=== PATIENT | female | born 1955 | race African-American/Black ===

== ENCOUNTER 2019-01-03 11:59 | Inpatient (IN) ==
[2019-01-03] MEDS ORDERED: HydrOXYzine PAMOATE 25 MG CAPSULE PO PRN (13:19)
[2019-01-03] MEDS ORDERED: METHOCARBAMOL 750 MG TABLET PO PRN (13:19)
[2019-01-03] MEDS ORDERED: LORazepam 2 MG/1 ML VIAL IV PRN (13:19)
[2019-01-03] MEDS ORDERED: DICYCLOMINE 10 MG CAPSULE PO PRN (13:19)
[2019-01-03] MEDS ORDERED: THIAMINE INJ 100 MG, FOLIC ACID INJ 1 MG, MULTIVITAMIN INJ 10 ML in SODIUM CHLORIDE 0.9... IV ONE (14:00)
[2019-01-03] MEDS: LORazepam 1 MG TABLET PO SCH ×3 (14:35→22:44)
[2019-01-03] MEDS: chlordiazePOXIDE 25 MG CAPSULE PO SCH ×2 (14:35→20:30)
[2019-01-03] MEDS: NICOTINE 21 MG/24 HR PATCH TRANSDERM SCH (14:35)
[2019-01-04] MEDS: LORazepam 1 MG TABLET PO SCH ×5 (03:56→19:54)
[2019-01-04] MEDS: chlordiazePOXIDE 25 MG CAPSULE PO SCH ×4 (03:56→21:21)
[2019-01-04] MEDS: NICOTINE 21 MG/24 HR PATCH TRANSDERM SCH (09:24)
[2019-01-04] MEDS: amLODIPine 10 MG TABLET PO SCH (09:24)
[2019-01-04] MEDS: LOSARTAN 50 MG TABLET PO SCH (09:24)
[2019-01-04 13:06] LABS: Albumin 3.7 G/DL (3.4-5.0); Bilirubin,Total 0.6 MG/DL (0.2-1.0); Osmolality,Calculated 275.5 MOS/KG (273-304); Total Protein 7.4 G/DL (6.4-8.3)
[2019-01-04] MEDS: SODIUM CHLORIDE 0.45% 1,000 ML IV SCH ×2 (13:27→21:49)
[2019-01-05] MEDS: LORazepam 1 MG TABLET PO SCH ×4 (03:57→21:24)
[2019-01-05] MEDS: chlordiazePOXIDE 25 MG CAPSULE PO SCH ×3 (05:03→21:23)
[2019-01-05] MEDS: SODIUM CHLORIDE 0.45% 1,000 ML IV SCH ×3 (05:08→21:23)
[2019-01-05 05:59] LABS: Basophils % 0.5 % (0.0-0.8); Eosinophils % 0.8 % (0.00-10.9); Hemoglobin 11.3 GM/DL (12.0-16.0); Lymphocytes # 1.6 10*3/uL (1.4-4.0); Lymphocytes % 42.5 % (21.3-54.2); Mean Corpuscular HGB Conc 33.2 GM/DL (32-36); Mean Corpuscular Volume 94.7 FL (87-102); Mean Platelet Volume 9.4 FL (9.6-12.0); Monocytes % 17.2 % (1.7-12.7); Platelet Count 166 T/CUMM (130-400); Red Blood Count 3.59 MC/CUMM (3.8-5.5); Red Cell Distribution Width 15.1 % (9.3-17.3); White Blood Count 3.7 T/CUMM (4-12)
[2019-01-05 06:11] LABS: Calcium 9.1 MG/DL (8.5-10.1); Osmolality,Calculated 279.1 MOS/KG (273-304)
[2019-01-05 06:32] LABS: Hypochromasia 1+; Lymphocytes 55 % (20-55); Metamyelocytes 1 %; Microcytosis 1+; Myelocytes 1 %; Platelet Estimate Adequate; Polychromasia Few; Segmented Neutrophils 34 % (50-85); Total Cells Counted 99
[2019-01-05] MEDS: LOSARTAN 50 MG TABLET PO SCH (09:11)
[2019-01-05] MEDS: NICOTINE 21 MG/24 HR PATCH TRANSDERM SCH (09:12)
[2019-01-05] MEDS: amLODIPine 10 MG TABLET PO SCH (09:12)
[2019-01-05] MEDS: LACTULOSE 20 GM/30 ML UDCUP PO SCH (21:23)
[2019-01-06] MEDS: chlordiazePOXIDE 25 MG CAPSULE PO SCH (05:35)
[2019-01-06] MEDS: LORazepam 1 MG TABLET PO SCH (05:35)
[2019-01-06] MEDS: SODIUM CHLORIDE 0.45% 1,000 ML IV SCH (05:35)
[2019-01-06] MEDS: NICOTINE 21 MG/24 HR PATCH TRANSDERM SCH (08:36)
[2019-01-06] MEDS: LACTULOSE 20 GM/30 ML UDCUP PO SCH (08:36)
[2019-01-06] MEDS: amLODIPine 10 MG TABLET PO SCH (08:36)
[2019-01-06] MEDS: LOSARTAN 50 MG TABLET PO SCH (08:36)
[2019-01-06 09:10] VITALS: BP 128/80
== END 2019-01-06 11:15 | disposition home or self-care (01) | DRG 772 ==
LOC: N.4E 12:37 → SUATTDRO 12:37
PROVIDERS: ADMIT Physician Assistant; ATTEND Internal Medicine

== ENCOUNTER 2019-09-08 07:12 | Inpatient (IN) ==
[2019-09-08] MEDS ORDERED: fentaNYL 100 MCG/2 ML VIAL IV STA (07:51)
[2019-09-08] MEDS ORDERED: ONDANSETRON 4 MG/2 ML VIAL IV STA (07:51)
[2019-09-08 08:30] LABS: Basophils % 0.2 % (0.0-0.8); Eosinophils % 0.1 % (0.00-10.9); Hematocrit 38.4 VOL% (35.7-47.0); Hemoglobin 12.4 GM/DL (12.0-16.0); Immature Granulocytes % 0.3 %; Immature Granulocytes Absolute 0.03 #; Lymphocytes # 1.1 10*3/uL (1.4-4.0); Lymphocytes % 11.9 % (21.3-54.2); Mean Corpuscular HGB Conc 32.3 GM/DL (32-36); Mean Corpuscular Volume 88.7 FL (87-102); Mean Platelet Volume 9.5 FL (9.6-12.0); Monocytes % 7.5 % (1.7-12.7); Platelet Count 178 T/CUMM (130-400); Red Blood Count 4.33 MC/CUMM (3.8-5.5); Red Cell Distribution Width 13.1 % (9.3-17.3); White Blood Count 9.1 T/CUMM (4-12)
[2019-09-08 08:39] LABS: PT Patient Result 10.7 SECS (9.6-12.2); Partial Thromboplastin Time 25.6 SECS (20.8-36.0)
[2019-09-08 09:00] LABS: Albumin 3.8 G/DL (3.4-5.0); Bilirubin,Total 0.4 MG/DL (0.2-1.0); Calcium 8.8 MG/DL (8.5-10.1); Osmolality,Calculated 278.4 MOS/KG (273-304); Total Protein 8.2 G/DL (6.4-8.3)
[2019-09-08 09:05] LABS: Apearance,Urine CLEAR (Clear); Bacteria,Urine Occasional /HPF (Few); Bilirubin,Urine Negative (Negative); Blood, Urine Negative (Negative); Glucose,Urine (UA) Negative (Negative); Ketones,Urine Negative (Negative); Mucus,Urine Occasional /LPF (Occasional); Nitrite,Urine Negative (Negative); Protein,Urine Negative; RBC,Urine 1 /HPF (0-4); Urine Color Straw (Yellow); Urine Specific Gravity 1.003 (1.001-1.035); Urine Urobilinogen < 2.0 EU/DL (0.2-1.0); WBC,Urine <1 /HPF (0-6)
[2019-09-08] MEDS ORDERED: SODIUM CHLORIDE 0.9% 1,000 ML IV SCH (09:40)
[2019-09-08] MEDS ORDERED: MAGNESIUM HYDROXIDE SUSP 30 ML UDCUP PO PRN (09:40)
[2019-09-08] MEDS ORDERED: ONDANSETRON 4 MG/2 ML VIAL IV PRN (09:40)
[2019-09-08] MEDS ORDERED: INFLUENZA VIRUS VACCINE 0.5 ML SYRINGE IM ONE (10:06)
[2019-09-08] MEDS: ATORVASTATIN 10 MG TABLET PO SCH (11:57)
[2019-09-08] MEDS: LOSARTAN 50 MG TABLET PO SCH (11:59)
[2019-09-08] MEDS: amLODIPine 5 MG TABLET PO SCH (11:59)
[2019-09-08] MEDS ORDERED: ENOXAPARIN 30 MG/0.3 ML SYRINGE SUBCUT ONE (13:03)
[2019-09-08] MEDS ORDERED: ENOXAPARIN 40 MG/0.4 ML SYRINGE SUBCUT SCH (13:30)
[2019-09-08] MEDS: HYDROmorphone 2 MG/1 ML VIAL IV PRN ×2 (14:02→23:45)
[2019-09-08] MEDS: PANTOPRAZOLE 40 MG TABLET PO SCH (14:07)
[2019-09-08] MEDS: LACTATED RINGERS 1,000 ML IV SCH ×2 (18:15→21:55)
[2019-09-09] MEDS: LACTATED RINGERS 1,000 ML IV SCH ×2 (03:52→15:59)
[2019-09-09] MEDS: HYDROmorphone 2 MG/1 ML VIAL IV PRN ×2 (05:18→22:53)
[2019-09-09] MEDS ORDERED: ceFAZolin 1,000 MG in SYRINGE 1 EACH IV ONE (06:00)
[2019-09-09] MEDS: LOSARTAN 50 MG TABLET PO SCH ×2 (06:15→12:36)
[2019-09-09] MEDS: amLODIPine 5 MG TABLET PO SCH ×2 (06:16→12:36)
[2019-09-09] MEDS ORDERED: MIDAZOLAM 2 MG/2 ML VIAL ONE (06:17)
[2019-09-09] MEDS ORDERED: fentaNYL 100 MCG/2 ML VIAL ONE (06:17)
[2019-09-09] MEDS ORDERED: ROPIVACAINE 0.5% 30 ML VIAL ONE (06:17)
[2019-09-09] MEDS ORDERED: DEXAMETHASONE 4 MG/1 ML VIAL ONE (06:17)
[2019-09-09] MEDS ORDERED: LIDOCAINE 1% 5 ML VIAL ONE (06:17)
[2019-09-09] MEDS ORDERED: GENTAMICIN 80 MG/2 ML VIAL ONE (06:44)
[2019-09-09] MEDS ORDERED: BACITRACIN OINT 0.9 GM PACK TOP ONE (08:07)
[2019-09-09] MEDS ORDERED: diphenhydrAMINE CAP 25 MG CAPSULE PO PRN (09:01)
[2019-09-09] MEDS ORDERED: propofoL 200 MG/20 ML VIAL IV ONE (09:05)
[2019-09-09] MEDS ORDERED: LIDOCAINE 2% 5 ML VIAL ONE (09:06)
[2019-09-09] MEDS ORDERED: SEVOFLURANE 1 UNIT/15 MINUTE INH ONE (09:06)
[2019-09-09] MEDS ORDERED: PHENYLEPHRINE 10 MG/1 ML VIAL IV ONE (09:06)
[2019-09-09] MEDS: ATORVASTATIN 10 MG TABLET PO SCH (12:36)
[2019-09-09] MEDS: AMITRIPTYLINE 25 MG TABLET PO SCH (12:36)
[2019-09-09] MEDS: PANTOPRAZOLE 40 MG TABLET PO SCH (12:36)
[2019-09-09] MEDS: ceFAZolin 1,000 MG in SYRINGE 1 EACH IV SCH ×2 (16:32→22:49)
[2019-09-10] MEDS: FONDAPARINUX 2.5 MG/0.5 ML SYRINGE SUBCUT SCH (03:59)
[2019-09-10 05:58] LABS: Basophils % 0.1 % (0.0-0.8); Hematocrit 31.8 VOL% (35.7-47.0); Hemoglobin 10.6 GM/DL (12.0-16.0); Immature Granulocytes % 0.3 %; Immature Granulocytes Absolute 0.02 #; Lymphocytes # 1.6 10*3/uL (1.4-4.0); Lymphocytes % 20.9 % (21.3-54.2); Mean Corpuscular HGB Conc 33.3 GM/DL (32-36); Mean Corpuscular Volume 85.9 FL (87-102); Mean Platelet Volume 10.1 FL (9.6-12.0); Monocytes % 12.9 % (1.7-12.7); Neutrophils % 65.8 % (38.7-73.9); Platelet Count 134 T/CUMM (130-400); Red Cell Distribution Width 12.7 % (9.3-17.3); White Blood Count 7.5 T/CUMM (4-12)
[2019-09-10 06:30] LABS: Calcium 8.6 MG/DL (8.5-10.1)
[2019-09-10 06:31] LABS: Osmolality,Calculated 274.5 MOS/KG (273-304)
[2019-09-10] MEDS: PANTOPRAZOLE 40 MG TABLET PO SCH (08:22)
[2019-09-10] MEDS: AMITRIPTYLINE 25 MG TABLET PO SCH (08:22)
[2019-09-10] MEDS: amLODIPine 5 MG TABLET PO SCH (08:22)
[2019-09-10] MEDS: LOSARTAN 50 MG TABLET PO SCH (08:23)
[2019-09-10] MEDS: ATORVASTATIN 10 MG TABLET PO SCH (08:25)
[2019-09-11] MEDS: FONDAPARINUX 2.5 MG/0.5 ML SYRINGE SUBCUT SCH (03:03)
[2019-09-11] MEDS: ATORVASTATIN 10 MG TABLET PO SCH (08:32)
[2019-09-11] MEDS: LOSARTAN 50 MG TABLET PO SCH (08:32)
[2019-09-11] MEDS: AMITRIPTYLINE 25 MG TABLET PO SCH (08:32)
[2019-09-11] MEDS: PANTOPRAZOLE 40 MG TABLET PO SCH (08:32)
[2019-09-11] MEDS: amLODIPine 5 MG TABLET PO SCH (08:35)
[2019-09-12] MEDS: FONDAPARINUX 2.5 MG/0.5 ML SYRINGE SUBCUT SCH (04:09)
[2019-09-12] MEDS: ATORVASTATIN 10 MG TABLET PO SCH (08:14)
[2019-09-12] MEDS: amLODIPine 5 MG TABLET PO SCH (08:14)
[2019-09-12] MEDS: AMITRIPTYLINE 25 MG TABLET PO SCH (08:14)
[2019-09-12] MEDS: PANTOPRAZOLE 40 MG TABLET PO SCH (08:14)
[2019-09-12] MEDS: LOSARTAN 50 MG TABLET PO SCH (08:14)
[2019-09-12 11:13] VITALS: BP 135/59
== END 2019-09-12 12:53 | disposition home health service (06) | DRG 313 ==
LOC: N.ED 07:12 → N.EDINP 08:02 → N.3E 09:42
PROVIDERS: ADMIT Orthopaedic Surgery; ATTEND Orthopaedic Surgery